=== PATIENT | female | born 1965 | race Caucasian/White ===

== ENCOUNTER 2019-01-06 07:34 | Emergency (ER) | payer OTHER ==
[~2019-01-06] VITALS: Ht 165.1 cm; Wt 97.5 kg
[2019-01-06] MEDS ORDERED: IBUPROFEN 800800 MG PO (09:57)
[2019-01-06] MEDS ORDERED: ACETAMINOPHEN-1 EAC1 PO (10:03)
[2019-01-06 10:04] VITALS: BP 183/82
== END 2019-01-06 10:05 | disposition home or self-care (01) ==
LOC: M.ERS 07:34
DX: S93.492A Sprain of other ligament of left ankle, initial encounter (principal); Z90.710 Acquired absence of both cervix and uterus; X58.XXXA Exposure to other specified factors, initial encounter; Y93.89 Activity, other specified; Y92.89 Other specified places as the place of occurrence of the external cause; Y99.8 Other external cause status